=== PATIENT | female | born 1965 | race Caucasian/White ===

== ENCOUNTER 2025-06-07 14:45 | Emergency (ER) | payer MEDICARE, OTHER ==
[~2025-06-07] VITALS: Ht 157.5 cm; Wt 54.4 kg
[~2025-06-07 14:45] MED LIST: ESOM20; HYDACE5 PO; IBUP800 PO
== END 2025-06-07 16:40 | disposition home or self-care (01) ==
LOC: ER 14:45
DX: M54.50 Low back pain, unspecified (principal); Z96.643 Presence of artificial hip joint, bilateral; Z91.81 History of falling; Z88.1 Allergy status to other antibiotic agents; Z79.899 Other long term (current) drug therapy
CPT/HCPCS: 72100; 99283-25